=== PATIENT | female | born 1965 | race Caucasian/White ===

== ENCOUNTER 2019-07-13 09:42 | Outpatient (CLI) | payer BC, SELFPAY ==
--- NOTE | 2019-07-13 09:47 | MM_ITS ---
WS: [id number] BILATERAL SCREENING DIGITAL MAMMOGRAM WITH CAD HISTORY: SCREENING COMPARISON: 02/15/2010 and 12/04/2017 Bilateral CC and MLO views submitted. Computer aided detection analyzed. Breast composition: There are scattered areas of fibroglandular density. No suspicious masses, microc alcifications or architectural distortion. Benign lymph nodes are noted bilaterally. MM/[place] [id number] IMPRESSION: BI-RADS: 2-Benign FOLLOW UP: 1 Year Follow-up
== END 2019-07-13 09:43 | disposition home or self-care (01) ==
LOC: RADSHAW 09:46
PROVIDERS: Family Provider Electrodiagnostic Medicine; PCP Electrodiagnostic Medicine; Visit Provider Electrodiagnostic Medicine
DX: Z12.31 Encounter for screening mammogram for malignant neoplasm of breast (principal)
CPT/HCPCS: 77067

== ENCOUNTER → 2020-03-14 16:24 | Outpatient (BNVA) | payer BC, SELFPAY | PROVIDERS: Family Provider Electrodiagnostic Medicine; PCP Electrodiagnostic Medicine; Visit Provider Electrodiagnostic Medicine | DX: Z11.59 Encounter for screening for other viral diseases (principal) | CPT/HCPCS: 87635 ==

== ENCOUNTER 2020-07-29 14:13 | Outpatient (CLI) | payer OTHER, SELFPAY ==
--- NOTE | 2020-07-29 14:17 | MM_ITS ---
WS: [id number] BILATERAL DIGITAL SCREENING MAMMOGRAPHY WITH CAD CLINICAL INFORMATION: SCREENING HISTORY: Screening mammogram. No current complaints. COMPARISON: July 13, 2019 TECHNIQUE: Bilateral CC and MLO views. FINDINGS: Scattered fibroglandular densities bilaterally. No suspicious focal mass, asymmetry, calcifications, or architectural distortion. No evidence of malignancy. Incidental bilateral intramammary lymph nodes MM/[id number] IMPRESSION: BI-RADS: 2-Benign FOLLOW UP: 1 Year Follow-up Recommend return to annual screening mammography.
== END 2020-07-29 14:14 | disposition home or self-care (01) ==
LOC: RADSHAW 14:15
PROVIDERS: PCP Electrodiagnostic Medicine; Visit Provider Electrodiagnostic Medicine
DX: Z12.31 Encounter for screening mammogram for malignant neoplasm of breast (principal)
CPT/HCPCS: 77067

== ENCOUNTER 2022-09-26 15:10 | Outpatient (CLI) | payer OTHER, SELFPAY ==
[2022-09-26 16:33] LABS: Alanine Aminotransferase 56 U/L (0-33); Albumin Level 4.3 g/dL (3.5-5.2); Alkaline Phosphatase 82 U/L (35-105); Anion Gap 17.3 (5-19); Aspartate Amino Transferase 32 U/L (0-32); Blood Urea Nitrogen 10 mg/dL (6-20); Calcium 10.8 mg/dL (8.5-10.5); Carbon Dioxide 25 mmol/L (22-29); Chloride 102 mmol/L (98-107); Chol HDL Ratio 2.04 mg/dL (0.0-4.40); Cholesterol 94 mg/dL (0-200); Free T4 Free Thyroxine 1.53 ng/dL (0.82-1.77); Globulin 2.9 g/dL (1.3-4.6); Glomerular Filtration Rate 103.8 mL/min (90-130); Glucose 88 mg/dL (65-115); HDL Cholesterol 46 mg/dL (60-100); LDL Cholesterol Calculated 33 mg/dL (50-129); LDL HDL Ratio 0.72 RATIO (0.00-3.22); Osmolality Calculated 288 mOsm/kg (285-295); Potassium 4.3 mmol/L (3.5-5.1); Sodium 140 mmol/L (136-145); Thyroid Stimulating Hormone 0.99 uIU/mL (0.27-4.20); Total Bilirubin 1.8 mg/dL (0.15-1.2); Total Protein 7.2 g/dL (6.6-8.7); Triglycerides 77 mg/dL (0-150)
[2022-10-04 11:14] LABS: IGF1 LC/MS 159 ng/mL (50-317); Z Score (Female) 0.3 SD (-2.0 - +2.0)
== END 2022-09-26 15:11 | disposition home or self-care (01) ==
LOC: LAB 15:12
PROVIDERS: PCP Electrodiagnostic Medicine; Visit Provider Internal Medicine
DX: R63.5 Abnormal weight gain (principal)
CPT/HCPCS: 80053; 80061; 84305; 84439; 84443

== ENCOUNTER → 2022-10-29 10:39 | Outpatient (BNVA) | payer OTHER, SELFPAY | PROVIDERS: PCP Electrodiagnostic Medicine; Visit Provider Internal Medicine | DX: R17 Unspecified jaundice (principal); R74.01 Elevation of levels of liver transaminase levels | CPT/HCPCS: 36415; 86705; 86706; 86709; 86803; 87340 ==

== ENCOUNTER 2022-11-14 07:05 | Outpatient (CLI) | payer OTHER, SELFPAY ==
--- NOTE | 2022-11-14 07:15 | US_ITS ---
WS: [id number] Exam: [place] liver [id number] Date/Time of Exam: 11/14/2022 7:17 AM Reason For Exam: Elevated bilirubin, transamnitis The liver is enlarged measuring 22.5 cm at greatest dimension. The liver is echodense which most like ly indicates hepatic steatosis. No hepatic mass or intrahepatic ductal dilatation was noted. The gall bladder is prominent but no stones are identified. No sign of acute or chronic cholecystitis. The com mon bile duct is not dilated and measures 3.5 mm at greatest diameter. The IVC is patent with phasic flow. The abdominal aorta is normal in caliber. A 1.75 cm cyst is seen at the lower pole the right ki dney. The right kidney is otherwise unremarkable and measures 12.1 x 5.65 x 6.53 cm. No mass or free fluid in the right abdomen. The pancreas is unremarkable as visualized. US/US liver [id number] IMPRESSION: 1. Hepatomegaly with echodense liver most likely indicating hepatic steatosis. No hepatic mass or intrahepatic ductal dilatation. 2. Prominent gallbladder but no sign of acute or chronic cholecystitis. No sign of the cholelithiasis.
== END 2022-11-14 07:06 | disposition home or self-care (01) ==
PROVIDERS: PCP Electrodiagnostic Medicine; Visit Provider Internal Medicine
DX: R16.0 Hepatomegaly, not elsewhere classified (principal); K82.8 Other specified diseases of gallbladder
CPT/HCPCS: 36415; 76705; 86705; 86706; 86709; 86803; 87340

== ENCOUNTER 2022-12-12 13:18 | Outpatient (CLI) | payer OTHER, SELFPAY ==
[2022-12-12 13:36] LABS: Total Volume Urine 2150 ml
[2022-12-12 13:54] LABS: Urine Creatinine 80 mg/dL (28-217)
[2022-12-18 08:58] LABS: Free Cortisol Urine 94.2 mcg/24 h (4.0-50.0); Total Urine 2150 mL; Urine Creatinine 1.68 g/24 h (0.50-2.15)
== END 2022-12-12 13:19 | disposition home or self-care (01) ==
LOC: LAB 13:21
PROVIDERS: PCP Electrodiagnostic Medicine; Visit Provider Internal Medicine
DX: R63.5 Abnormal weight gain (principal); R17 Unspecified jaundice; R74.01 Elevation of levels of liver transaminase levels
CPT/HCPCS: 82530; 82570

== ENCOUNTER 2023-01-04 08:10 | Outpatient (CLI) | payer OTHER, SELFPAY ==
[2023-01-04 09:07] LABS: Cortisol Random 1.16 ug/dL (2.47-19.5)
== END 2023-01-04 08:11 | disposition home or self-care (01) ==
LOC: LAB 08:14
PROVIDERS: PCP Electrodiagnostic Medicine; Visit Provider Internal Medicine
DX: R74.01 Elevation of levels of liver transaminase levels (principal); E66.9 Obesity, unspecified; R17 Unspecified jaundice
CPT/HCPCS: 36415; 82533

== ENCOUNTER 2023-11-14 09:56 | Outpatient (CLI) | payer OTHER, SELFPAY ==
--- NOTE | 2023-11-14 10:07 | MM_ITS ---
WS: [id number] VIEWS: MLO and CC views both breasts. 3D digital tomosynthesis is also included in this exam. Comparison made with prior exam of 12/05/2007, 02/15/2010, 07/13/2019, 07/29/2020,. Findings: There was no sign of mass, architectural distortion or suspicious calcification in either breast. The re are are scattered areas of fibroglandular density MM/[place] [id number] Impression: BI-RADS: 2-Benign finding. FOLLOW-UP: 1 Year Follow-up This mammogram was also analyzed by the Computer Aided Detection System [employer].
== END 2023-11-14 09:57 | disposition home or self-care (01) ==
LOC: RAD 09:56
PROVIDERS: PCP Electrodiagnostic Medicine; Visit Provider Electrodiagnostic Medicine
DX: Z12.31 Encounter for screening mammogram for malignant neoplasm of breast (principal); R92.323 Mammographic fibroglandular density, bilateral breasts
CPT/HCPCS: 77063; 77067

== ENCOUNTER → 2025-03-18 14:30 | Outpatient (BNVA) | payer OTHER, SELFPAY | PROVIDERS: PCP Electrodiagnostic Medicine; Visit Provider Nurse Practitioner Women's Health | DX: Z01.419 Encounter for gynecological examination (general) (routine) without abnormal findings (principal) | CPT/HCPCS: 80053; 80061; 82306; 84443; 85025; 87624 ==

== ENCOUNTER 2025-03-29 10:17 | Outpatient (CLI) | payer OTHER, SELFPAY ==
--- NOTE | 2025-03-29 10:20 | MM_ITS ---
WS: [id number] BILATERAL SCREENING DIGITAL TOMOSYNTHESIS MAMMOGRAM WITH CAD HISTORY: Z12.39 - Encounter for other screening for malignant neop... COMPARISON: 11/14/2023, 07/29/2020 Bilateral CC and MLO views with tomosynthesis and synthetic mammography submitted. Computer aided detection analyzed. Breast composition: There are scattered areas of fibroglandular density. No suspicious masses, microcalcifications or architectural distortion. There are a few benign calcifications. MM/MM scr BI tomosynthesis [id number] IMPRESSION: BI-RADS: 2 - Benign. FOLLOW UP: 1 Year Follow-up
== END 2025-03-29 10:18 | disposition home or self-care (01) ==
LOC: RAD 10:19
PROVIDERS: PCP Electrodiagnostic Medicine; Visit Provider Nurse Practitioner Women's Health
DX: Z12.31 Encounter for screening mammogram for malignant neoplasm of breast (principal); Z01.419 Encounter for gynecological examination (general) (routine) without abnormal findings; R92.323 Mammographic fibroglandular density, bilateral breasts; R92.1 Mammographic calcification found on diagnostic imaging of breast
CPT/HCPCS: 77063; 77067

== ENCOUNTER → 2025-04-05 13:33 | Outpatient (BNVA) | payer OTHER, SELFPAY | PROVIDERS: PCP Electrodiagnostic Medicine; Visit Provider Nurse Practitioner Women's Health | DX: N84.1 Polyp of cervix uteri (principal); N88.8 Other specified noninflammatory disorders of cervix uteri | CPT/HCPCS: 76830 ==